=== PATIENT | male | born 2005 | race Caucasian/White ===

== ENCOUNTER 2025-04-09 22:15 | Emergency (ER) | payer MEDICAID ==
[~2025-04-09] VITALS: Ht 177.8 cm; Wt 82.0 kg
[2025-04-09 22:35] VITALS: O2SAT 99
[2025-04-10] MEDS: ACETAMINOPHEN 500MG TABLET PO ONE (00:42)
[2025-04-10 01:02] LABS: CLARITY URINE CLEAR (CLEAR); COLOR URINE DARK YELLOW (YELLOW); GLUCOSE URINE NEGATIVE (NEGATIVE); KETONES URINE 3+ (NEGATIVE); LEUKOCYTE ESTERASE URINE 1+ (NEGATIVE); NITRITE URINE NEGATIVE (NEGATIVE); OCCULT BLOOD URINE 1+ (NEGATIVE); PH URINE 5.5 (4.5-8.0); PROTEIN URINE NEGATIVE (NEGATIVE); SPECIFIC GRAVITY URINE 1.021 (1.005-1.030); UROBILINOGEN URINE 0.2 E.U./dL (0.2-1.0)
[2025-04-10 01:12] LABS: BASOPHILS % 0.5 % (0.0-2.0); EOSINOPHILS % 0.2 % (0.0-5.0); HEMATOCRIT. 44.6 % (42.0-52.0); HEMOGLOBIN. 15.7 g/dL (14.0-18.0); LYMPHOCYTES % 21.8 % (20.0-50.0); MEAN PLATELET VOLUME 7.6 fl (7.4-10.4); MONOCYTES % 7.8 % (2.0-8.0); NEUTROPHILS % 69.7 % (40.0-76.0); PLATELET 312 x1000/uL (130-400); RED BLOOD CELL COUNT 5.21 mill/uL (4.7-6.1); RED CELL DISTRIBUTION WIDTH 12.2 % (11.6-14.6)
[2025-04-10 01:16] VITALS: TEMP 36.8
[2025-04-10 01:25] LABS: CREATININE 0.7 mg/dL (0.6-1.3); UREA NITROGEN BLOOD 8 mg/dL (9-23)
[2025-04-10] MEDS ORDERED: MECL-217 MT (02:02)
[2025-04-10] MEDS ORDERED: GUAI600T26 MT (02:02)
[2025-04-10 02:19] VITALS: BP 161/83; PULSE 100; RESP 20; O2SAT 100
[2025-04-10 03:23] LABS: BACTERIA URINE NONE SEEN; RBC URINE 0-2 /hpf (0-2); SQUAMOUS EPITHELIAL CELL URINE NONE SEEN /lpf (RARE/1+)
== END 2025-04-10 02:27 | disposition home or self-care (01) ==
LOC: ER 22:15
DX: B34.9 Viral infection, unspecified (principal)
CPT/HCPCS: 36415; 76700; 80048; 81003; 85025; 93005; 99284